=== PATIENT | male | born 1990 | race Hispanic/Latino ===

== ENCOUNTER 2017-08-02 08:58 | Emergency (ER) | payer SELFPAY ==
[2017-08-02 09:33] LABS: #Eosinphils 0.1 thou/uL (0.0-0.7); #Lymphocytes 2.1 thou/uL (1.20-3.40); #Monocytes 0.6 thou/uL (0.11-0.59); #Neutrophils 4.3 thou/uL (1.40-6.50); %Basophils 0.5 % (0.0-1.0); %Eosinophils 1.2 % (0.0-10.0); %Lymphocytes 29.6 % (21.0-51.0); %Monocytes 8.8 % (0.0-10.0); Hematocrit 50.3 % (42.0-52.0); Red Blood Cell (RBC) Count 5.65 mill/uL (4.70-6.10); White Blood Cell (WBC) Count 7.2 thou/uL (4.8-10.8)
[2017-08-02 10:00] LABS: ALT (SGPT) 29 U/L (8-55); AST (SGOT) 24 U/L (5-34); Alkaline Phosphatase 113 U/L (40-150); Anion Gap 9 mmol/L (10-20); BUN (Urea Nitrogen) 15 mg/dL (8.9-20.6); Bilirubin, Total 1.3 mg/dL (0.2-1.2); Calc. Creatinine Clearance 0 mL/min (70-130); Calcium 9.6 mg/dL (7.8-10.44); Carbon Dioxide 25 mmol/L (22-29); Chloride 106 mmol/L (98-107); Estimated GFR-MDRD Greater than 90; Globulin 2.9 g/dL (2.4-3.5); Lipase 13 U/L (8-78); Protein, Total 7.3 g/dL (6.0-8.3)
[2017-08-02] MEDS ORDERED: Ciprofloxacin 500 MG TAB ONE (10:11)
[2017-08-02] MEDS ORDERED: metroNIDAZOLE 250 MG TAB ONE (10:11)
[2017-08-02] MEDS ORDERED: metroNIDAZOLE 500 MG/100 ML BAG ONE (10:20)
[2017-08-02 10:27] LABS: Bilirubin Negative (Negative); Blood, Urine Negative (Negative); Glucose, Urine (Dipstick) Negative (Negative); Ketone, Urine Negative (Negative); Nitrite Negative (Negative); Protein, Urine (Dipstick) Negative (Neg-Trace)
--- NOTE | 2017-08-02 10:33 | CT ---
CT ABDOMEN AND PELVIS WITH CONTRAST: History: Abdominal pain for four days. Comparison: None. FINDINGS: Lung bases are clear. No pericardial effusion. Liver, spleen, gallbladder, and pancreas unremarkable. Adrenal glands are normal. Kidneys are unrema rkable. Mild thickening of the terminal ileum. Pancreas is visualized and is normal. Mild diverticular disea se sigmoid colon without active inflammation. No hydronephrosis. Renal parenchymal enhancement is normal. Skeleton is unremarkable. Mild increase in number of ileocolic lymph nodes. IMPRESSION: 1. Mild thickening of the terminal ileum with increased number of ileocolic lymph nodes, likely reac tive. The terminal ileum thickening could be infectious or inflammatory. 2. Normal appendix. 3. Small appendicolith within the appendix or body without stranding. POS: [facility]
[2017-08-02] MEDS ORDERED: ISOVUE-370 76%-LOCM 1 ML ONE (15:59)
== END 2017-08-02 11:07 | disposition home or self-care (01) ==
LOC: ERS 08:58
DX: K50.00 Crohn's disease of small intestine without complications (principal)
CPT/HCPCS: 36415; 74177; 80053; 81003; 83690; 85025; 96365